=== PATIENT | male | born 1955 | race Caucasian/White ===

== ENCOUNTER → 2022-12-22 | Outpatient (CLI) | payer MEDICARE, OTHER, SELFPAY ==
--- NOTE | 2022-12-22 12:36 | CT_ITS ---
STUDY: CT CHEST WITH CONTRAST REASON FOR EXAM: Male, 67 years old. Chest pain-limited chest OVER READ ONLY. RADIATION DOSAGE (If Supplied By Facility): CTDIvol = ( 29.13 ) mGy, DLP = ( 1081.04 ) mGycm TECHNIQUE: Transaxial imaging was performed following intravenous administration of IV 60mL Isovue-370. Individualized dose optimization techniques were used for this CT. COMPARISON: No relevant priors. FINDINGS: CHEST The lungs are normal. There is no demonstrated pleural abnormality. There are calcifications of the coronary arteries. Calcified precarinal and subcarinal mediastinal lymph nodes. Calcified bilateral hilar lymph nodes. Normal hilar regions. Normal unenhanced pulmonary arteries. There is atherosclerotic calcification of the aortic arch. Normal osseous structures. Fatty infiltration of the liver. CT/Limited Chest CT Cardiac Only IMPRESSION: Coronary artery calcification. Calcified mediastinal and bilateral hilar lymphadenopathy. Electronically Signed: Rahul Cortse MD at 15:25 EDT ,
[2022-12-22 12:51] VITALS: BP 167/82; PULSE 73; RESP 18; O2SAT 100; BMI 25.8
[2022-12-22 13:17] VITALS: BP 148/82; PULSE 77
[2022-12-22 13:17] LABS: EGFR FINGERSTICK > 60.0000 mL/min (>60)
[2022-12-22] MEDS: Nitroglycerin SL (ED/IMG/CATH) 0.4 MG TABLET SL (13:17)
[2022-12-22 13:26] VITALS: BP 181/87; PULSE 67; RESP 187; O2SAT 97
[2022-12-22 13:30] VITALS: BP 181/87; PULSE 76; RESP 18; O2SAT 96
[2022-12-22 13:38] VITALS: BP 181/87; PULSE 70; RESP 18; O2SAT 96
--- NOTE | 2022-12-23 09:54 | CCTA.WCONT ---
CCTA w/Cont Coronary Arteries Date of Study:: 12/22/22 Chest pain Coronary Calcium Scoring: High-resolution Computed Tomographic imaging of the chest was performed on [12/22/2022], with particular attention paid to the coronary arteries. Intravenous contrast agent was administered per protocol and images reconstructed and displayed. LEFT MAIN CORONARY ARTERY: Appear to be angiographically normal from the left coronary cusp [] LEFT ANTERIOR DESCENDING CORONARY ARTERY: Significant calcification was noted in the proximal and mid third of the left anterior descending artery with diffuse distal disease noted. The extent of the calcification precluded comment on significant obstruction. [] LEFT CIRCUMFLEX CORONARY ARTERY: Significant calcification noted of the proximal third of the left circumflex artery which was nondominant. Blooming artifacts were present and could not comment on extent of obstruction. [] RIGHT CORONARY ARTERY: Dominant vessel with misregistration artifact noted but significant calcification noted in the proximal and mid segments. [] THORACIC AORTA: Calcification noted Conclusion: Significant coronary atherosclerosis present. Exact amount of stenosis could not be determined on this study due to significant artifact.
== END | disposition home or self-care (01) ==
PROVIDERS: PCP Nurse Practitioner Family; Referring Provider Nurse Practitioner Family; Visit Provider Nurse Practitioner Family
DX: R07.9 Chest pain, unspecified (principal); I10 Essential (primary) hypertension; I65.29 Occlusion and stenosis of unspecified carotid artery; I35.0 Nonrheumatic aortic (valve) stenosis
CPT/HCPCS: 75574; 76380; Q9967

== ENCOUNTER → 2023-05-05 | Outpatient (CLI) | payer MEDICARE, OTHER, SELFPAY ==
--- NOTE | 2023-05-05 09:55 | RAD_ITS ---
EXAMINATION: Air contrast UPPER GI SERIES INDICATION: Male, 67 years burning sensation in the upper abdomen. FLUOROSCOPY TIME (if supplied): (0:51) minutes/seconds. 40.26 mGy. 23 images were submitted. TECHNIQUE: Radiographic and fluoroscopic images of the distal esophagus, stomach, and proximal small intestine were obtained following the oral ingestion of barium. COMPARISON: None. 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 No evidence of gastroesophageal reflux. The stomach and duodenum are unremarkable. No evidence of ulceration or mass lesion. RAD/Upper GI Dual Contrast IMPRESSION: 1. 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 Electronically Signed: Rahul Cortes MD at 11:03 EST ,
== END | disposition home or self-care (01) ==
LOC: RAD 09:43
PROVIDERS: PCP Nurse Practitioner Family; Referring Provider Nurse Practitioner Family; Visit Provider Nurse Practitioner Family
DX: K21.9 Gastro-esophageal reflux disease without esophagitis (principal); K30 Functional dyspepsia
CPT/HCPCS: 74246

== ENCOUNTER 2023-10-12 13:06 | Outpatient (RCR) | payer MEDICARE, OTHER, SELFPAY ==
[2023-10-11 15:12] LABS: Hematocrit 40.2 % (40-54); Hemoglobin 12.5 g/dL (13.0-16.5); Mean Corp Hgb Conc 31.1 g/dL (32-36); Mean Corpuscular Hgb 29.3 pg (27.0-32.0); Mean Corpuscular Volume 94.1 fL (80-94); Mean Platelet Vol. 9.8 fl (6.2-12.0); Platelet Count 516 K/mm3 (150-450); RBC Distribution Width CV 13.6 % (11.6-14.6); RBC Distribution Width SD 45.6 fl (35.1-43.9); Red Blood Count 4.27 M/mm3 (4.6-6.2); White Blood Count 14.8 K/mm3 (4.4-11.0)
[2023-10-12 13:32] LABS: Hematocrit 33.9 % (40-54); Hemoglobin 10.8 g/dL (13.0-16.5); Mean Corp Hgb Conc 31.9 g/dL (32-36); Mean Corpuscular Hgb 29.1 pg (27.0-32.0); Mean Corpuscular Volume 91.4 fL (80-94); Mean Platelet Vol. 9.8 fl (6.2-12.0); Platelet Count 535 K/mm3 (150-450); RBC Distribution Width CV 13.5 % (11.6-14.6); RBC Distribution Width SD 44.3 fl (35.1-43.9); Red Blood Count 3.71 M/mm3 (4.6-6.2); White Blood Count 16.1 K/mm3 (4.4-11.0)
[2023-10-12 13:47] LABS: Albumin, Serum 3.2 g/dL (3.2-5.0); BUN 13 mg/dL (7-18); BUN/Creat Ratio 12.4 RATIO (10-20); Calcium,Total 9.3 mg/dL (8.5-10.1); Chloride 107 mmol/L (98-107); Creatinine, Serum 1.05 mg/dL (0.70-1.30); EST Glomerular Filtration Rate 74 mL/min (>60); Est Glom Filt Rate - Afr Amer 90 mL/min (>60); Glucose 122 mg/dL (74-106); Magnesium 2.2 mg/dL (1.6-2.6); Phosphorus 3.6 mg/dL (2.5-4.9); Potassium 3.9 mmol/L (3.5-5.1); Sodium Level 137 mmol/L (136-145)
== END 2023-10-20 23:59 ==
LOC: HHLAB 13:06
PROVIDERS: PCP Nurse Practitioner Family; Referring Provider Nurse Practitioner Family; Visit Provider Nurse Practitioner Family
DX: I25.810 Atherosclerosis of coronary artery bypass graft(s) without angina pectoris (principal)
CPT/HCPCS: 80069; 83735; 85027